=== PATIENT | male | born 1960 | race Caucasian/White ===

== ENCOUNTER 2016-12-26 12:50 | Emergency (ER) | payer SELFPAY ==
[2016-12-26] MEDS ORDERED: Metoprolol Tartrate 5 MG/5 ML VIAL ONE ×2 (13:42→16:26)
--- NOTE | 2016-12-26 14:21 | RAD ---
PA AND LATERAL VIEWS CHEST HISTORY: Cough. FINDINGS: The heart is enlarged. The lungs are well expanded without confluent areas of consolidation, pneumo thorax, helen pulmonary edema, or pleural effusions. There are mild degenerative changes in the spi ne. IMPRESSION: No radiographic evidence of pneumonia. POS: [facility]
[2016-12-26 14:22] LABS: Bilirubin Negative (Negative); Blood, Urine Negative (Negative); Clarity Clear (Clear); Glucose, Urine (Dipstick) Negative (Negative); Leukocyte Negative (Negative); Nitrite Negative (Negative); Protein, Urine (Dipstick) Negative (Neg-Trace); Urobilinogen 0.2 mg/dL (0.2-1.0)
[2016-12-26 14:32] LABS: Squamous Epithelial 0-3 HPF (0-3)
[2016-12-26 14:33] LABS: Bacteria/HPF Rare-Few HPF (None Seen); RBC/HPF 0-3 HPF (0-3); WBC/HPF None Seen HPF (0-3)
[2016-12-26 14:37] LABS: #Basophils 0.2 thou/uL (0.0-0.2); #Eosinphils 0.1 thou/uL (0.0-0.7); #Lymphocytes 1.7 thou/uL (1.20-3.40); #Monocytes 0.8 thou/uL (0.11-0.59); #Neutrophils 10.2 thou/uL (1.40-6.50); %Basophils 1.3 % (0.0-1.0); %Eosinophils 0.8 % (0.0-10.0); %Lymphocytes 13.2 % (21.0-51.0); %Monocytes 5.9 % (0.0-10.0); %Neutrophils 78.7 % (42.0-75.0); Hemoglobin 17.3 g/dL (14.0-18.0); Mean Corpuscular HGB CONC 34.6 g/dL (32.0-36.0); Mean Corpuscular Hemoglobin 31.7 pg (27.0-31.0); Mean Corpuscular Volume 91.6 fl (80.0-94.0); Mean Platelet Volume 11.7 fL (7.4-10.4); Platelet Count 222 thou/uL (130-400); RBC Distribution Width 11.5 % (11.5-14.5); Red Blood Cell (RBC) Count 5.45 mill/uL (4.70-6.10); White Blood Cell (WBC) Count 12.9 thou/uL (4.8-10.8)
[2016-12-26 14:39] LABS: Prothrombin Time 13.2 SEC (12.0-14.7)
[2016-12-26 14:40] LABS: PTT 29.2 SEC (22.9-36.1)
[2016-12-26 14:51] LABS: CKMB 1.8 ng/mL (0-6.6)
[2016-12-26 14:55] LABS: ALT (SGPT) 33 U/L (8-55); AST (SGOT) 25 U/L (5-34); Albumin 4.5 g/dL (3.5-5.0); Alkaline Phosphatase 98 U/L (40-150); Anion Gap 16 mmol/L (10-20); BUN (Urea Nitrogen) 9 mg/dL (8.4-25.7); Bilirubin, Total 0.5 mg/dL (0.2-1.2); CK (CPK) 136 U/L (30-200); Calc. Creatinine Clearance 0 mL/min (70-130); Calcium 9.7 mg/dL (7.8-10.44); Carbon Dioxide 28 mmol/L (22-29); Chloride 99 mmol/L (98-107); Estimated GFR-MDRD Greater than 90; Globulin 3.3 g/dL (2.4-3.5); Glucose 90 mg/dL (70-105); Magnesium 2.6 mg/dL (1.6-2.6); Potassium 3.6 mmol/L (3.5-5.1); Protein, Total 7.8 g/dL (6.0-8.3); Sodium 139 mmol/L (136-145)
[2016-12-26] MEDS ORDERED: Lorazepam 2 MG/ML VIAL ONE (15:14)
[2016-12-26] MEDS ORDERED: Ondansetron HCl/PF 4 MG/2 ML Vial ONE (15:15)
[2016-12-26] MEDS ORDERED: Cephalexin 500 MG CAP ONE (15:15)
[2016-12-26] MEDS ORDERED: Sulfameth/Trimethoprim DS 800-160mg TAB ONE (15:15)
[2016-12-26] MEDS ORDERED: Benzonatate 100 MG CAP ONE (15:15)
[2016-12-26] MEDS ORDERED: Aspirin 325 MG TAB ONE (15:15)
[2016-12-26] MEDS ORDERED: cefTRIAXone\\ROCEPHIN 1 GM VIAL ONE (16:26)
[2016-12-26] MEDS ORDERED: Dexamethasone 10 MG/ML VIAL ONE (16:41)
[2016-12-26] MEDS ORDERED: Oxymetazoline HCl 0.05% ( 15 ML ) ONE (17:44)
== END 2016-12-26 21:11 | disposition home or self-care (01) ==
LOC: MADERS 12:50 → EDSEX 12:50 → MADERS 21:11
DX: J01.90 Acute sinusitis, unspecified (principal); J20.9 Acute bronchitis, unspecified; F41.9 Anxiety disorder, unspecified; I10 Essential (primary) hypertension; Z79.899 Other long term (current) drug therapy
CPT/HCPCS: 36415; 71020; 80053; 81001; 82553; 83735; 83880; 84484; 85025; 85610; 85730; 87086; 93005; 94640; 94760; 96365; 96375; J0696; J1100; J2060; J2405; J7620